=== PATIENT | female | born 1965 | race Caucasian/White ===

== ENCOUNTER 2020-01-14 13:15 | Emergency (ER) | payer OTHER ==
[~2020-01-14] VITALS: Ht 154.9 cm; Wt 49.3 kg
[2020-01-14] MEDS ORDERED: ATIV1TAB10 PO (13:26)
[2020-01-14] MEDS ORDERED: diazePAM 5 MG TAB PO ONE (15:30)
--- NOTE | 2020-01-14 15:42 | REPVR ---
PROCEDURE INFORMATION: Exam: CT Head Without Contrast Exam date and time: 01/14/2020 3:25 PM Age: 54 years old Clinical indication: Pain; Other: Tingling; Additional info: Tingling in head TECHNIQUE: Imaging protocol: Computed tomography of the head without contrast. Radiation optimization: All CT scans at this facility use at least one of these dose optimization techniques: automated exposure control; mA and/or kV adjustment per patient size (includes targeted exams where dose is matched to clinical indication); or iterative reconstruction. COMPARISON: No relevant prior studies available. FINDINGS: Brain: No hemorrhage. Unremarkable white matter for the patient's age. No mass effect. No evolving territorial infarct. Ventricles: No ventriculomegaly. Bones/joints: Unremarkable. No acute fracture. Sinuses: Visualized sinuses are unremarkable. No fluid levels. Mastoid air cells: Trace right mastoid effusion. Soft tissues: Unremarkable. IMPRESSION: No acute intracranial abnormality seen. Electronically signed by: Susy Shen On 01/14/2020 15:42:08 PM
[2020-01-14 16:12] LABS: BASO # 0.1 10^3/uL (0.0-0.2); BASO % 0.8 % (0.0-1.0); EOS # 0.1 10^3/uL (0.0-0.5); EOS % 0.6 % (0.0-3.0); HEMATOCRIT 45.6 % (36.0-47.0); HEMOGLOBIN 15.5 g/dl (12.0-15.5); LYMPH # 2.6 10^3/uL (1.5-5.0); LYMPH % 23.8 % (24.0-44.0); MEAN CORPUSCULAR HEMOGLOBIN 33.3 pg (27.0-33.0); MEAN CORPUSCULAR VOLUME 97.9 fl (80.0-96.0); MONO # 0.5 10^3/uL (0.0-0.8); MONO % 4.7 % (0.0-5.0); NEUTROPHILS # 7.7 10^3/uL (1.5-8.5); NEUTROPHILS % 69.7 % (36.0-66.0); PLATELET COUNT, AUTOMATED 345 10^3/uL (150-450); RED BLOOD COUNT 4.66 10^6/uL (4.00-5.40); WHITE BLOOD COUNT 11.1 10^3/uL (4.0-10.0)
[2020-01-14 16:29] LABS: ALBUMIN 4.3 GM/DL (3.2-5.2); ALT/SGPT 18 U/L (12-78); BILIRUBIN,TOTAL 0.5 MG/DL (0.2-1.0); BLOOD UREA NITROGEN 8 MG/DL (7-18); CALCIUM LEVEL 9.3 MG/DL (8.5-10.1); CARBON DIOXIDE LEVEL 26 MEQ/L (21-32); CHLORIDE LEVEL 106 MEQ/L (98-107); CREATININE FOR GFR 0.76 MG/DL (0.55-1.30); GLOMERULAR FILTRATION RATE > 60.0 (>51); GLUCOSE, FASTING 91 MG/DL (70-100); POTASSIUM SERUM 3.7 MEQ/L (3.5-5.1); SODIUM LEVEL 140 MEQ/L (136-145); TOTAL PROTEIN 7.7 GM/DL (6.4-8.2)
[2020-01-14 16:30] LABS: VITAMIN B12 LEVEL 434 PG/ML (247-911)
[2020-01-14] MEDS ORDERED: VALI10TA PO (17:02)
[2020-01-14 17:07] VITALS: BP 124/88
--- NOTE | 2020-01-14 21:47 | ECGEPIP ---
[facility] - ED Test Date: 2020-01-14 Pat Name: ELISE EDWARDS Department: Room: - Gender: Female Medical Dir: PEREZ : 1965 Requested By: FREDY BLANK Order Number: [id number] Reading MD: Rodney Walker Measurements Intervals [place] Rate: 73 P: 62 SC: 166 QRS: 61 QRSD: 86 T: 57 QT: 389 QTc: 431 Interpretive Statements SINUS RHYTHM NO PRIORS FOR COMPARISON Electronically Signed on 01-14-2020 21:47:50 EDT by Rodney Walker
[2020-01-15 10:28] LABS: TOTAL 25(OH) VITAMIN D 26.9 NG/ML (30.0-100.0)
== END 2020-01-14 17:09 | disposition home or self-care (01) ==
LOC: M ED 13:15
DX: F41.1 Generalized anxiety disorder (principal); F17.210 Nicotine dependence, cigarettes, uncomplicated

== ENCOUNTER 2020-12-09 14:55 | Emergency (ER) | payer OTHER ==
[~2020-12-09] VITALS: Ht 154.9 cm; Wt 47.7 kg
[~2020-12-09 14:55] MED LIST: ATIV1TAB10 PO; VALI10TA PO
[2020-12-09 14:56] VITALS: BP 125/81
[2020-12-09] MEDS ORDERED: ONDA4TAB6 (15:08)
[2020-12-09] MEDS ORDERED: MULT400T10 (15:08)
[2020-12-09] MEDS ORDERED: DESV50TA3 (15:08)
[2020-12-09] MEDS ORDERED: TRAZ-252 (15:08)
[2020-12-09] MEDS ORDERED: MECL-136 (15:08)
[2020-12-09] MEDS ORDERED: OXCA150T21 (15:08)
[2020-12-09] MEDS ORDERED: HYDR-3363 (15:08)
[2020-12-09] MEDS ORDERED: LORazepam 1 MG TAB PO STA (17:23)
--- NOTE | 2020-12-09 17:48 | REPVR ---
PROCEDURE INFORMATION: Exam: CT Head Without Contrast Exam date and time: 12/09/2020 5:34 PM Age: 55 years old Clinical indication: Pain; Headache; Additional info: Chronic headaches, tingling face TECHNIQUE: Imaging protocol: Computed tomography of the head without contrast. Radiation optimization: All CT scans at this facility use at least one of these dose optimization techniques: automated exposure control; mA and/or kV adjustment per patient size (includes targeted exams where dose is matched to clinical indication); or iterative reconstruction. COMPARISON: CT Head without contrast 01/14/2020 3:22 PM FINDINGS: Brain: No acute intracranial hemorrhage, cerebral edema, or midline shift. Cerebral ventricles: No hydrocephalus. Bones/joints: No acute fracture. Paranasal sinuses: There is no acute sinusitis. Mastoid air cells: Visualized mastoid air cells are well aerated. Orbital cavity: Unremarkable as visualized. Soft tissues: Unremarkable. IMPRESSION: No acute intracranial abnormality. Electronically signed by: Shekhar Sorto On 12/09/2020 17:48:13 PM
[2020-12-09] MEDS ORDERED: KETO10TAB PO (18:41)
[2020-12-09] MEDS ORDERED: ACETAMINOPHEN TAB 650MG DOSE (2X325MG) PO ONE (18:45)
[2020-12-09] MEDS ORDERED: IBUPROFEN 800 MG TAB PO ONE (18:45)
== END 2020-12-09 18:58 | disposition home or self-care (01) ==
LOC: M ED 14:55
DX: R51.9 Headache, unspecified (principal); F41.9 Anxiety disorder, unspecified; Z79.899 Other long term (current) drug therapy; F17.210 Nicotine dependence, cigarettes, uncomplicated